=== PATIENT | female | born 1945 | race American Indian/Alaskan Native ===

== ENCOUNTER 2022-01-17 16:51 | Emergency (ER) | payer MEDICARE ==
[2022-01-17 17:29] VITALS: BP 125/55
[2022-01-17 18:48] LABS: Basophils % (Auto) 0.6 % (0.0-1.8); Eosinophils # (Auto) 0.1 K/mm3 (0.0-0.4); Eosinophils % (Auto) 0.9 % (0.0-4.3); Hematocrit 35.7 % (30.3-42.9); Hemoglobin 11.9 gm/dl (10.1-14.3); Lymphocytes # (Auto) 1.7 K/mm3 (1.2-5.4); Lymphocytes % (Auto) 28.1 % (13.4-35.0); Mean Corpuscular HGB Conc 33 % (30-34); Mean Corpuscular Volume 90 fl (79-97); Monocytes # (Auto) 0.5 K/mm3 (0.0-0.8); Monocytes % (Auto) 8.6 % (0.0-7.3); Platelet Count 187 K/mm3 (140-440); Red Blood Count 3.98 M/mm3 (3.65-5.03); Red Cell Distribution Width 13.2 % (13.2-15.2)
[2022-01-17 19:08] LABS: Alanine Aminotransferase 17 units/L (7-56); Albumin 4.3 g/dL (3.9-5); BUN/Creatinine Ratio 25; Blood Urea Nitrogen 20 mg/dL (7-17); Calcium 9.1 mg/dL (8.4-10.2); Hemolysis Index 10
--- NOTE | 2022-01-18 10:05 | Electrocardiograph Report ---
[facility] Test Date: 2022-01-17 Test Time: 17:36:31 Pat Name: NILSA ESTRADA Department: Room: Gender: F [employer] Operator: ALEX : 1945 Requested By: NEGRITO FOLEY Order Number: [id number] Reading MD: Dean Quarles Measurements Intervals [place] Rate: 65 P: 60 NC: 136 QRS: 36 QRSD: 75 T: 62 QT: 406 QTc: 423 Interpretive Statements Sinus rhythm Consider anteroseptal infarct No previous ECG available for comparison Electronically Signed On 01-18-2022 10:04:42 EDT by Dean Quarles
== END 2022-01-18 04:30 | disposition left against medical advice (07) ==
LOC: ED 16:51
DX: R53.1 Weakness (principal); R42 Dizziness and giddiness; Z53.21 Procedure and treatment not carried out due to patient leaving prior to being seen by health care provider
CPT/HCPCS: 36415; 80053; 84484; 85025; 93005